=== PATIENT | female | born 1940 | race Caucasian/White ===

== ENCOUNTER → 2016-12-14 | Outpatient (CLI) | payer OTHER ==
--- NOTE | ~2016-12-14 | TH ---
Unit #: [id number] #: [id number] Patient: ALICIA RACHEL [id number] [address] [address] [id number] O MR#: [id number] NAME: ALICIA RACHEL : 1940 SEX: F STUDY DATE/TIME: 12/14/2016 UNIT: [facility] ROOM: STUDY DESCRIPTION: Cardiolite imaging Attending Physician: Shelbi Hunt M.D. Referring Physician: Shelbi Hunt M.D. Primary Care Physician: Hollie Sena M.D. CARDIOLOGY REPORT EXAM Cardiolite imaging. PROCEDURE This 76-year-old patient received 0.4 mg of Lexiscan intravenously followed by 32.2 mCi of technetium 99m Cardiolite and images were obtained according to the standard SPECT protocol. For rest images 10.4 mCi of Cardiolite were injected. Images were reviewed in both phases. FINDINGS Overall study quality is excellent. Left ventricular cavity size is normal in both images. There is no lung activity. Right ventricle is normal. Rotating raw data showed no significant artifact, soft tissue attenuation. Mild GI uptake noted. Review of SPECT images showed moderate decrease in radiotracer concentration in a small lateral segment on the stress images. In the rest images this defect is reversible. Gated image showed normal left ventricular wall thickening and wall motion with an estimated left ventricular ejection fraction of 69%. IMPRESSION 1. Myocardial perfusion imaging is abnormal. 2. Intermediate likelihood of a small lateral ischemia. 3. Normal left ventricular dimensions. 4. Normal systolic left ventricular function with an estimated left ventricular ejection fraction of 59%. Dictated by... Rick Wilson M.D. KLJ/gz TD: 12/14/2016 13:01 JOB #: [id number] Unit #: [id number] #: [id number] Patient: ALICIA RACHEL CARDIOLOGY REPORT Page 1 of 1 X Rick Wilson MD CARDIOLOGY REPORT
--- NOTE | ~2016-12-14 | ST ---
Unit #: [id number] #: [id number] Patient: ALICIA RACHEL [id number] [address] [address] [id number] O MR#: [id number] NAME: ALICIA RACHEL : 1940 SEX: F STUDY DATE/TIME: 12/14/2016 UNIT: [facility] ROOM: STUDY DESCRIPTION: Cardiac stress test. Attending Physician: Shelbi Hunt M.D. Referring Physician: Shelbi Hunt M.D. Primary Care Physician: Hollie Sena M.D. CARDIOLOGY REPORT EXAM Cardiac stress test. PROCEDURE Baseline EKG normal sinus rhythm. Left bundle branch block. Resting heart rate 51 per minute, blood pressure 125/65. This 76-year-old patient received 0.4 mg of Lexiscan intravenously. During the test no ischemic changes noted. No significant arrhythmias noted. Occasional PVCs. Blood pressure was stable. IMPRESSION 1. Nondiagnostic EKG during Lexiscan. 2. No arrhythmias noted. 3. Stable blood pressure during the test. 4. Correlate with Cardiolite study. 1. Dictated by... Rick Wilson M.D. KLJ/gz TD: 12/14/2016 12:27 JOB #: [id number] CARDIOLOGY REPORT Page 1 of 1 X Rick Wilson MD CARDIOLOGY REPORT
== END | disposition home or self-care (01) ==
LOC: CNUC 07:27
DX: R07.89 Other chest pain (principal)
CPT/HCPCS: 78452; 93017; A9500; J2785